=== PATIENT | male | born 1990 ===

== ENCOUNTER 2018-02-15 00:51 | Outpatient (CLI) | payer MEDICAID, SELFPAY ==
--- NOTE | 2018-02-15 07:30 | DI.RPTCT_ITS ---
SYMPTOM/DIAGNOSIS: HEMATURIA, PAIN RENAL COLIC CT: The study was carried out according to the usual protocol without contrast enhancement. A small portion of the lung bases is demonstrated and appears unremarkable. The mid and inferior portion of the liver and gallbladder and pancreas are intact. Small splenules are noted adjacent to the lower border of the spleen. No splenic abnormality is seen. There is a tiny calcification in the left kidney consistent with a non obstructing calculus. The right kidney is unremarkable. There is no evidence of right or left hydronephrosis or hydroureter or ureterolithiasis. Thickening of the bladder wall is likely secondary to non distension. There is no evidence of bowel obstruction. The appendix is normal. There is no evidence of free air or free fluid in the intraperitoneal space. The unopacified aorta is unremarkable. Note is made of an L 5-S 1 spondylosis without evidence of spondylolisthesis. SUMMARY: A single small nonobstructing left renal calculus is identified. The bladder is incompletely evaluated on the present examination due to non distension. Further assessment with cystoscopy is suggested if clinically warranted.
[2018-02-15 08:10] LABS: CREATININE 0.85 mg/dL (0.70-1.30)
[2018-02-15 08:40] LABS: Bilirubin Small (Negative); Blood Negative (Negative); Clarity Sl Cloudy; Glucose Negative (Negative); Ketones Trace mg/dL (Negative); Leukocyte Esterase Negative (Negative); Nitrite Negative (Negative); Specific Gravity >= 1.030 (1.005-1.025); Urobilinogen 0.2 EU/dL (Up TO 0.2); pH 5.5 (5-8)
[2018-02-15 08:51] LABS: Epithelial Cells Rare HPF (Negative); RBC 0-2 (0-2)
[2018-02-15 08:52] LABS: Bacteria Moderate HPF (Negative); C & S Indicated? Yes; Crystals Negative HPF (Negative); Mucus Heavy (Negative); Other Cells Rare Renal (Negative)
== END 2018-02-15 00:52 ==
PROVIDERS: PCP General Practice; Visit Provider General Practice
DX: R31.9 Hematuria, unspecified (principal); N20.0 Calculus of kidney; R10.32 Left lower quadrant pain
CPT/HCPCS: 36415; 74176; 81003; 81015; 82565; 87086

== ENCOUNTER 2018-07-30 01:29 | Outpatient (CLI) | payer MEDICAID, SELFPAY ==
--- NOTE | 2018-07-30 09:23 | DI.RAD_ITS ---
SYMPTOMS/DIAGNOSIS: CHRONIC BACK PAIN C-SPINE: The vertebral bodies and disc spaces are well maintained. The neural canal is widely patent. There is no evidence of bony foraminal compromise. The posterior elements and facet joints are normal. The odontoid is normal. The prevertebral soft tissues are unremarkable. Bilateral styloid processes. SUMMARY: Normal C-spine. If there is any further clinical question, then correlation with MRI could be considered.
--- NOTE | 2018-07-30 09:23 | DI.RAD_ITS ---
SYMPTOM/DIAGNOSIS: CHRONIC BACK AND NECK PAIN THORACIC SPINE: Frontal and lateral views. Comparison chest xray is 05/04/17. There is a right convex scoliosis of the thoracic spine. There is also exaggeration of the kyphosis. There is thoracic curvature of the thoracic spine seen centered around T 10-11. There are mild degenerative changes seen in the lower thoracic spine. No acute fractures or subluxations are seen. The paraspinal lines are intact. IMPRESSION: Mild degenerative changes in the thoracic spine. Right convex scoliosis and kyphosis seen in the thoracic spine. LUMBAR SPINE: AP, lateral and bilateral oblique views. Comparison CT scan is 02/15/18. There is a left convex scoliosis of the lower thoracic and lumbar spine. There is spondylolysis at L 5 but no significant spondylolisthesis. No acute fractures or subluxations are seen. The vertebral bodies and disc spaces are all well maintained. Small endplate osteophytes are seen at the T 12-L 1 level and the L 3-4 level. The bones are normally mineralized. IMPRESSION: Mild degenerative changes in the lumbar spine.
== END 2018-07-30 01:49 ==
PROVIDERS: PCP General Practice; Visit Provider General Practice
DX: M54.2 Cervicalgia (principal); M54.6 Pain in thoracic spine; M54.5 Low back pain; M47.815 Spondylosis without myelopathy or radiculopathy, thoracolumbar region; M41.35 Thoracogenic scoliosis, thoracolumbar region
CPT/HCPCS: 72050; 72072; 72110

== ENCOUNTER 2019-03-21 10:17 | Emergency (ER) | payer BC, SELFPAY ==
[2019-03-21 10:22] VITALS: BP 153/87; PULSE 80; RESP 18; TEMP 36.7; O2SAT 100
[2019-03-21 10:26] VITALS: RESP 18
--- NOTE | 2019-03-21 10:45 | DI.CT_ITS ---
EXAM: CT CHEST PE CTA CLINICAL HISTORY: Hemoptysis. TECHNIQUE: COMPARISON: RENAL COLIC WO CONTRAST from 02/15/2018 FINDINGS: CT angiography of the chest was performed bolus infusion of 100 cc of Omnipaque 350. The examination is not of ideal technical quality but no significant pulmonary embolus is identified. Thoracic aort a and major branches are unremarkable. No mediastinal or hilar adenopathy. Tracheobronchial tree ap pears intact. Lungs are clear. Images obtained through the upper abdomen show unremarkable appearan ce of visualized portions of liver and spleen IMPRESSION: No evidence of pulmonary embolic disease. No additional significant findings.
--- NOTE | 2019-03-21 10:46 | W.ED.GENAD ---
Discharge Plan Disposition Patient Disposition: HOME Condition: Improving Discharge Details Chief Complaint: GenMedical Clinical Impression: Cough with hemoptysis Primary Care Provider: Rosalino Sam ED Provider: Shilo Valenzuela Discharge Instructions Instructions: Hemoptysis (ED) Additional Instructions: Return if you have persistent coughing up of blood, develop with fever, shortness of breath, chest pain, or any other acute concerns. Your laboratories and CAT scan of the chest were unremarkable and reassuring today. Continue efforts to completely cease use of tobacco products. Follow-up with Dr. Sam for any ongoing concerns. Medical Decision Making 28-year-old male light smoker presents with 3 coughs this morning that were bloody tinged. States he had similar episode of hemoptysis that was larger one month ago. Denies any systemic signs or symptoms of infection. He is otherwise been well. He does not take anticoagulants. Is well-appearing with normal vital signs, although slightly hypertensive at 153/87. Differential diagnosis includes anemia, bronchitis, mass or PE. Patient had screening laboratories obtained referred for CT scan of the chest. Laboratories are unremarkable. CT is without abnormal findings. Patient remained stable and improved. Discussed with him complete cessation of tobacco products. He stable and improved, appropriate for discharge to home. HPI General Mode of arrival: ambulatory. Date/Time Provider Initiated Documentation: 03/21/19 10:34. Limitations to Documentation: no limitations. Information obtained by: patient. History of Present Illness 28 year old M presents to the emergency department with the chief complaint of Hemoptysis 1 month ago and recurrent today, described as mild, and is localized to the chest. Patient reports no radiation. Patient started experiencing this minute(s) and it has been now resolved. No relieving factors improve symptom(s), No exacerbating factors reported . Patient notes cough; denies fever/chills, shortness of breath and syncope. Patient did receive the following treatments prior to arrival, none General Stated Complaint: GenMedical JUAN: 3 Review of Systems Review of Systems Narrative: Smokes all though has minimized his use. No fever, chills, body ache, night sweats. Sick systems reviewed and otherwise negative [facility] Social History Smoking/Tobacco Use Status: Current every day Tobacco Type: cigarettes Alcohol Intake: former Substance use type: does not use Do you feel safe at home: Yes Do you feel safe in your relationship?: Yes Exam Narrative Exam Narrative: GEN: awake, alert, oriented 3. Pleasant, well groomed, interactive. HEAD: Normocephalic, atraumatic ENT: Mucous membranes moist, oropharynx unremarkable, External ear exam unremarkable EYES: PERRL, EOMI NECK: Full ROM, no BINTA, no menigismus CHEST/RESP: Nontender, clear to auscultation bilateral, no wheeze/rhonchi/rales CARDIOVASCULAR: RRR, no murmur, rub gerber. 2+ Rad pulse bilateral ABDOMEN: Soft, nontender, no mass. +Bowel sounds EXT: Full ROM, no edema, no rash Neuro: Grossly normal neurologic exam, conversant, interactive. Psych: Speech fluent, thoughts congruent, affect normal Course Vital Signs Vital signs: Vital Signs Temperature 36.7 C 03/21/19 10:22 Pulse 80 03/21/19 10:22 Respiratory Rate 18 03/21/19 10:22 Blood Pressure 153/87 H 03/21/19 10:22 Pulse Oximetry 100 03/21/19 10:22 Temperature 36.7 C 03/21/19 10:22 Temperature Source Temporal Artery Scan 03/21/19 10:22 Pulse 80 03/21/19 10:22 Respiratory Rate 18 03/21/19 10:26 Respiratory Effort Non-Labored 03/21/19 10:26 Respiratory Depth Normal 03/21/19 10:26 Respiratory Pattern Normal 03/21/19 10:26 Blood Pressure 153/87 H 03/21/19 10:22 Blood Pressure Position Supine 03/21/19 10:22 Pulse Oximetry 100 03/21/19 10:22 Oxygen Delivery Method Room Air 03/21/19 10:22 Oxygen Flow Rate 0 03/21/19 10:22 Pain Level 0 03/21/19 10:22
[2019-03-21] MEDS: Normal Saline Flush 10 ML SYR IVP (10:58)
[2019-03-21 10:59] LABS: Abs Immature Grans 0.02 k/cumm (0.0-0.09); Absolute Basophil Count 0.01 k/cumm (0.0-0.2); Basophils % 0.1; Eosinophils % 1.3; HCT 46.2 % (40.0-50.0); HGB 15.9 g/dL (13.5-17.5); Immature Grans % 0.3; Lymphocytes % 27.2; Mean Corp. HGB Concentration 34.4 g/dL (32.0-36.0); Mean Corpuscular Hemoglobin 29.2 pg (27.0-33.0); Mean Corpuscular Volume 84.9 fL (80-95); Mean Platelet Volume 10.6 fL (8.0-11.0); Monocytes % 9.1; Platelet Count 201 x1000/uL (130-400); RBC 5.44 m/cumm (4.50-6.00); RBC Distribution Width 12.6 % (11.8-14.1); White Blood Cell Count 7.73 k/cumm (4.4-10.8)
[2019-03-21 11:11] LABS: ALT 48 U/L (16-63); AST 24 U/L (15-37); Albumin 4.2 g/dL (3.4-5.0); Alkaline Phosphatase 98 U/L (46-116); Anion Gap 7.8 mmol/L (3-11); BUN 13 mg/dL (7-18); Bilirubin, Total 0.6 mg/dL (0.2-1.0); CO2 30.2 mmol/L (21.0-32.0); CREATININE 0.91 mg/dL (0.70-1.30); Chloride 102 mmol/L (98-107); Glucose 87 mg/dL (70-100); Potassium 4.2 mmol/L (3.5-5.1); Sodium 140 mmol/L (136-145); Total Protein 7.9 g/dL (6.4-8.2)
[2019-03-21] MEDS: Omnipaque 350 MG/ML 100 ML BTL IJ (12:02)
[2019-03-21 12:25] VITALS: PULSE 77; RESP 18; TEMP 36.8; O2SAT 98
== END 2019-03-21 12:26 | disposition home or self-care (01) ==
PROVIDERS: Emergency Provider Emergency Medicine; PCP General Practice
DX: R04.2 Hemoptysis (principal); F17.210 Nicotine dependence, cigarettes, uncomplicated
CPT/HCPCS: 36415; 71275; 80053; 96360; 96361; 99285; 85025; 99284; J3490

== ENCOUNTER 2019-09-06 10:15 | Outpatient (CLI) | payer BC, SELFPAY ==
--- NOTE | 2019-09-06 10:15 | DI.RAD_ITS ---
EXAM: XR CHEST 2V PA LATERAL CLINICAL HISTORY: Recurrent hemoptysis, R04.2 TECHNIQUE: COMPARISON: CHEST 2 VIEWS PA,LAT from 05/04/2017 XR thoracic spine complete from 07/30/2018 FINDINGS: There is a marked biconvex thoracolumbar scoliosis. Cardiac size is within normal limits. Lungs are clear. No pleural effusion or pneumothorax. Mediastinal contours grossly unremarkable. IMPRESSION: No evidence of acute process. No change from radiographs obtained in April 2017.
[2019-09-06 11:59] LABS: Abs Immature Grans 0.02 k/cumm (0.0-0.09); Absolute Basophil Count 0.02 k/cumm (0.0-0.2); Absolute Eosinophil Count 0.16 k/cumm (0.0-0.7); Absolute Lymphocyte Count 2.55 k/cumm (1.2-3.4); Absolute Monocyte Count 0.88 k/cumm (0.11-0.7); Absolute Neutrophil Count 4.41 k/cumm (1.2-6.7); Basophils % 0.2; HCT 46.4 % (40.0-50.0); HGB 15.9 g/dL (13.5-17.5); Immature Grans % 0.2 %; Lymphocytes % 31.7; Mean Corp. HGB Concentration 34.3 g/dL (32.0-36.0); Mean Corpuscular Hemoglobin 28.9 pg (27.0-33.0); Mean Corpuscular Volume 84.2 fL (80-95); Mean Platelet Volume 11.3 fL (8.0-11.0); Monocytes % 10.9; Platelet Count 218 x1000/uL (130-400); RBC 5.51 m/cumm (4.50-6.00); RBC Distribution Width 12.5 % (11.8-14.1); White Blood Cell Count 8.04 k/cumm (4.4-10.8)
== END 2019-09-06 10:35 ==
PROVIDERS: PCP Family Medicine; Visit Provider Family Medicine
DX: R04.2 Hemoptysis (principal)
CPT/HCPCS: 36415; 71046; 85025

== ENCOUNTER 2019-09-09 10:17 | Outpatient (CLI) | payer BC, SELFPAY ==
[2019-09-11 17:01] LABS: COVID-19 RT-PCR Result Undetected (Undetected)
== END 2019-09-09 10:37 ==
PROVIDERS: PCP Family Medicine; Visit Provider Family Medicine
DX: Z20.828 Contact with and (suspected) exposure to other viral communicable diseases (principal); R05 Cough; R06.02 Shortness of breath; R50.9 Fever, unspecified
CPT/HCPCS: 87449; U0003

== ENCOUNTER 2020-06-15 00:39 | Emergency (ER) | payer MEDICAID, SELFPAY ==
[2020-06-15] VITALS (12 sets, daily range): BP systolic 114–140; BP diastolic 72–78; PULSE 68–85; RESP 10–27; TEMP 36.4; O2SAT 95–100
--- NOTE | 2020-06-15 00:30 | RT.EKG_ITS ---
APPROVED REPORT Exam: Resting ECG Patient Location: E HR:86 bpm ECG Measurements Heart Rate 86 AXIS UT 142 P -19 QRSd 99 QRS 29 QT 346 T 8 QTc 414 Conclusion Sinus rhythm...normal P axis, V-rate 60- 99 Physician: Rate 86, intervals normal, no significant ST elevation or depression, inverted T wave is p resent in lead III, there is small Q-wave noted in lead III. No broad terminal S wave in lead I. No evidence of Brugada syndrome, delta wave, epsilon wave, or hocm. No STEMI
--- NOTE | 2020-06-15 00:45 | DI.RAD_ITS ---
EXAM: XR CHEST 2V PA LATERAL CLINICAL HISTORY: cogh, sob, chest tight. TECHNIQUE: 2D digital imaging was performed. COMPARISON: CR XR CHEST 2V PA LATERAL from 09/06/2019 FINDINGS: Heart size is normal. The mediastinum is not widened. Lungs are clear. No infiltrates nor pleural effusions. Chest leads in place. Thoracic scoliosis again noted. IMPRESSION: No acute pulmonary findings.No significant change compared to 09/06/2019. DATA REPOSITORY: RADIATION DOSE DELIVERED:
[2020-06-15] MEDS: Normal Saline 1,000 ML 1000 ML IV (00:55)
[2020-06-15 01:07] LABS: Abs Immature Grans 0.01 10^3/uL (0.0-0.06); Absolute Basophil Count 0.02 10^3/uL (0.0-0.2); Absolute Eosinophil Count 0.23 10^3/uL (0.0-0.7); Absolute Monocyte Count 0.72 10^3/uL (0.1-0.8); Absolute Neutrophil Count 4.52 10^3/uL (1.2-6.7); Basophils % 0.2; Eosinophils % 2.6; HCT 45.1 % (40.0-50.0); HGB 15.2 g/dL (13.5-17.5); Immature Grans % 0.1; Lymphocytes % 38.2; MCH 28.9 pg (27.0-33.0); MCHC 33.7 % (32.0-36.0); MCV 85.7 fL (80-95); MPV 11.3 fL (8.0-11.0); Monocytes % 8.1; Neutrophils % 50.8; Nucleated RBC 0 %; Platelet Count 199 10^3/uL (130-400); RBC 5.26 10^6/uL (4.36-5.78)
[2020-06-15 01:20] LABS: PTT Activated 25.9 sec (21.0-27.5); Prothrombin Time 9.9 sec (9.3-11.0)
[2020-06-15 01:31] LABS: ALT 47 U/L (16-63); AST 19 U/L (15-37); Albumin 3.9 g/dL (3.4-5.0); Alkaline Phosphatase 108 U/L (46-116); BUN 17 mg/dL (7-18); Bilirubin, Total 0.3 mg/dL (0.2-1.0); CREATININE 1.11 mg/dL (0.70-1.30); Calcium 8.3 mg/dL (8.5-10.1); Chloride 105 mmol/L (98-107); Glucose 132 mg/dL (74-106); Magnesium 1.9 mg/dL (1.8-2.4); NT-proBNP 10 pg/mL (<300); Potassium 3.5 mmol/L (3.5-5.1); Sodium 138 mmol/L (136-145); TSH (W/Ref FT4) 2.22 uIU/mL (0.36-3.74)
--- NOTE | 2020-06-15 01:32 | ED.GENADUL_ITS ---
Discharge Plan Disposition Patient Disposition: HOME Condition: Good Discharge Details Clinical Impression: Heart palpitations, Chest pain Primary Care Provider: Ryan Elliott ED Provider: Cristiano Arteaga Home Meds and New Rx's Prescriptions: No Action multivitamin Tablet 1 tab PO DAILY RF: 0 Discharge Instructions Instructions: Chest Pain (ED), Heart Palpitations (ED) Additional Instructions: At this time your work-up shows no signs of blood clots, heart attack, or other significant abnormality. However, your palpitations do need further evaluation. We have placed a referral for a Holter monitor. You will be contacted by respiratory therapist for scheduling placement of this device. Please follow-up closely with your primary care provider. I would recommend further discussion of the CPAP/BiPAP machine for your sleep apnea. If you notice any worsening of your symptoms, or any new symptoms such as vomiting, diarrhea, fever, chills, shortness of breath, chest pain, numbness, weakness, or fainting , please return immediately to the emergency department for reevaluation. Please follow up with your primary care provider as soon as possible for reassessment and reevaluation. As always, it was a pleasure participating in your medical care today. Referrals: Ryan Elliott DO [Primary Care Provider] - Medical Decision Making 30-year-old male with a past medical history of asthma, tobacco abuse, previous kidney stone, presents today for evaluation of palpitations. Patient states that he woke up in the middle of the night tightness in his chest radiating to his left arm. He did notice a small dry cough tonight. He had a heart rate monitor on him and noticed that his heart rate would oscillate between the high 90s to 130s. His symptoms persisted and he came to the ER for further assessment. He has noticed episodes like this occasionally recently, especially with his heart rate going up slightly more, however he has not ever had it last this long or with this associated pain. Does have a family history of cardiac disease however his parents when they are 50s and 60s when this occurred. Denies PE risk factors such as recent long car rides, immobilization, recent major surgery, prior history of DVT or PE, family history of PE or DVT, morbid obesity, exogenous estrogen, hemoptysis, history of cancer. He does admit to having his right posterior molar removed 1 week ago, but he has had no complications with this. No other complaints at this time. No history of IV or illicit drug use, no cocaine use, no alcohol use. Physical exam is unremarkable, patient does have a slightly enlarged neck girdle, may be suggestive of sleep apnea. His lungs are clear, vital signs are stable at this time. Pain is mild. Differential is broad but includes musculoskeletal pain, sleep apnea, or dysrhythmia. We will gently rehydrate, monitor closely, evaluate for cardiac etiology and reassess. I do feel the patient would benefit from an outpatient Holter monitor if his results are unremarkable in the end. 4:45 AM Serial troponins, serial EKGs, have returned normal, D-dimer negative, laboratory work-up otherwise unremarkable. Patient feeling well, pain resolved completely on its own within the first 30 minutes here in the emergency department. proBNP normal suggesting no signs of heart strain, thyroid function normal, urinalysis negative, UDS negative. Symptoms feel very likely related to palpitations potentially secondary to sleep apnea. Symptoms inconsistent with ACS. Will give order for outpatient Holter monitor. Recommend close follow-up with PCP for discussion about CPAP/BiPAP at home. Discussed red flags for which to return. Discussed case with his as well. I have extensively reviewed the treatment plan and discharge instructions with the patient and their family. I have addressed all patient concerns at this time. The patient and family was made aware of what symptoms to monitor for that would warrant a return to the emergency department. Discussed the plan with the patient and family, they demonstrate verbal understanding and agreement with our assessment and plan at this time. EKG 00: 46 Rate 86, intervals normal, no significant ST elevation or depression, inverted T wave is present in lead III, there is small Q-wave noted in lead III. No broad terminal S wave in lead I. No evidence of Brugada syndrome, delta wave, epsilon wave, or hocm. No STEMI FINDINGS: Lungs: Unremarkable. No consolidation. Pleural space: Unremarkable. No pleural effusion. No pneumothorax. Heart/Mediastinum: Unremarkable. No cardiomegaly. Bones/joints: Unremarkable. IMPRESSION: No acute findings. Thank you for allowing us to participate in the care of your patient. Dictated and Authenticated by: Andrew Flaherty MD 06/15/2020 1:36 AM Eastern Time ([place] & [place]) HPI General Date/Time Provider Initiated Documentation: 06/15/20 00:39 . HPI Narrative: 30-year-old male with a past medical history of asthma, tobacco abuse, previous kidney stone, presents today for evaluation of palpitations. Patient states that he woke up in the middle of the night tightness in his chest radiating to his left arm. He did notice a small dry cough tonight. He had a heart rate monitor on him and noticed that his heart rate would oscillate between the high 90s to 130s. His symptoms persisted and he came to the ER for further assessm ent. He has noticed episodes like this occasionally recently, especially with his heart rate going up slightly more, however he has not ever had it last this long or with this associated pain. Does have a family history of cardiac disease however his parents when they are 50s and 60s when this occurred. Denies PE risk factors such as recent long car rides, immobilization, recent major surgery, prior history of DVT or PE, family history of PE or DVT, morbid obesity, exogenous estrogen, hemoptysis, history of cancer. He does admit to having his right posterior molar removed 1 week ago, but he has had no complications with this. No other complaints at this time. No history of IV or illicit drug use, no cocaine use, no alcohol use. Related Data Home Medications Medication Instructions Recorded Confirmed multivitamin 1 tab PO DAILY 09/03/19 06/15/20 Allergies Allergy/AdvReac Type Severity Reaction Status Date / Time No Known Allergies Allergy Verified 06/15/20 00:51 General Stated Complaint: Chest Pain JUAN: 2 Review of Systems All systems reviewed & are unremarkable except as noted in HPI and below PFSH Medical History Alcohol abuse Asthma Chronic pain Kidney stone Schizoaffective disorder Scoliosis Spondylolisthesis Tobacco use disorder Surgical History History of arthroplasty of right knee History of total left hip arthroplasty Family History Maternal Grandmother Non-Hodgkins lymphoma Maternal Grandfather Non-Hodgkins lymphoma Social History Smoking/Tobacco Use Status: Current-Occasional Tobacco Type: cigarettes Tobacco: How many years used: 10 Smoking risk assessment performed?: Yes Alcohol Intake: former Drug use: Current Sobriety Substance use type: former substance user, marijuana and opiates Adopted: No Caregiver/Support person: No Foster care: No Household members: significant other and family Housing: house Do you need help understanding health information?: Never current occupation: Development, [employer] Sexually active: Yes Do you think of yourself as: straight/heterosexual Current gender identity: male Do you feel safe at home: Yes Do you feel safe in your relationship?: Yes Exam Narrative Exam Narrative: 1.Const: Well-nourished, Well-developed, appearing stated age 2.Eyes: PERRL, no conjunctival injection, and symmetrical lids. 3.ENT: Atraumatic external nose and ears. Moist MM. Neck: Symmetric, trachea midline, No thyromegaly. Large neck girdle 4.CVS: +S1/S2, No murmurs or gallops. Peripheral pulses 2+ and equal in all extremities. Brisk capillary refill in all extremities. 5.RESP: Unlabored respiratory effort. Clear to auscultation bilaterally. No wheezes rales or rhonchi 6.GI: Soft, Nontender/Nondistended, No hepatosplenomegaly. No guarding or rebound. 7.MSK: Normocephalic/Atraumatic, Extremities w/o deformity or ttp No cyanosis or clubbing, Normal movement of all extremities 8.Skin: Warm, Dry. No rashes or lesions. 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 Sensation grossly intact, no focal neurologic deficits. 10.Psych: (AAO) x3. Appropriate mood and affect Course Vital Signs Vital signs: Vital Signs Temperature 36.4 C L 06/15/20 00:46 Pulse 85 06/15/20 00:46 Respiratory Rate 20 06/15/20 00:46 Blood Pressure 140/77 06/15/20 00:46 Pulse Oximetry 100 06/15/20 00:46 Temperature 36.4 C L 06/15/20 00:46 Temperature Source Skin 06/15/20 00:46 Pulse 80 06/15/20 01:02 Pulse 80 06/15/20 01:02 Respiratory Rate 23 06/15/20 01:02 Respiratory Effort Non-Labored 06/15/20 00:55 Respiratory Depth Normal 06/15/20 00:55 Respiratory Pattern Normal 06/15/20 00:55 Blood Pressure 129/72 06/15/20 01:02 Blood Pressure Mean 83 06/15/20 01:02 Blood Pressure Position Supine 06/15/20 00:46 Pulse Oximetry 98 06/15/20 01:02 Oxygen Delivery Method Room Air 06/15/20 00:46 Oxygen Flow Rate 0 06/15/20 00:46 Pain Level 0 06/15/20 00:55 Lab/Test Results Lab/Test Results: Laboratory Tests Range/Units 06/15/20 06/15/20 00:55 00:55 WBC (4.4-10.8) 10^3/uL 8.90 RBC (4.36-5.78) 10^6/uL 5.26 Hgb (13.5-17.5) g/dL 15.2 Hct (40.0-50.0) % 45.1 MCV (80-95) fL 85.7 MCH (27.0-33.0) pg 28.9 MCHC (32.0-36.0) % 33.7 RDW (11.8-14.1) % 12.0 Plt Count (130-400) 10^3/uL 199 MPV (8.0-11.0) fL 11.3 H Immature Gran % 0.1 Neutrophils % 50.8 Lymphocytes % 38.2 Monocytes % 8.1 Eosinophils % 2.6 Basophils % 0.2 Nucleated RBC % % 0 Absolute Neutrophils (1.2-6.7) 10^3/uL 4.52 Absolute Lymphocytes (1.2-3.4) 10^3/uL 3.40 Absolute Monocytes (0.1-0.8) 10^3/uL 0.72 Absolute Eosinophils (0.0-0.7) 10^3/uL 0.23 Absolute Basophils (0.0-0.2) 10^3/uL 0.02 PT (9.3-11.0) sec 9.9 INR (0.9-1.1) 1.0 APTT (21.0-27.5) sec 25.9
--- NOTE | 2020-06-15 01:36 | DI.VRAD_ITS ---
PROCEDURE INFORMATION: Exam: XR Chest, 2 Views Exam date and time: 06/15/2020 12:52 AM Age: 30 years old Clinical indication: Cough and shortness of breath; Patient HX: Cogh, SOB, chest tight TECHNIQUE: Imaging protocol: XR of the chest Views: 2 views. COMPARISON: CR XR CHEST 2V PA LATERAL 09/06/2019 10:32 AM FINDINGS: Lungs: Unremarkable. No consolidation. Pleural space: Unremarkable. No pleural effusion. No pneumothorax. Heart/Mediastinum: Unremarkable. No cardiomegaly. Bones/joints: Unremarkable. IMPRESSION: No acute findings. Dictated and Authenticated by: Andrew Flaherty MD. Ordering:LEEANNE Quinonez MD
[2020-06-15 01:41] LABS: Troponin I < 0.05 ng/mL (<0.06)
[2020-06-15 01:51] LABS: D-Dimer 198 ng/mlFEU (<500)
[2020-06-15 02:28] LABS: *AMPHETAMINES SCREEN URINE Negative (Negative); *BARBITURATES SCREEN URINE Negative (Negative); *BENZODIAZEPINES SCREEN URINE Negative (Negative); Cannabinoids THC Negative (Negative); Cocaine Screen,Urine Negative (Negative); METHADONE URINE SCREEN Negative (Negative); OPIATES URINE SCREEN Negative (Negative)
[2020-06-15 02:33] LABS: Bilirubin Negative (Negative); Blood Negative (Negative); Clarity Clear (Clear); Glucose Negative (Negative); Ketones Negative (Negative); Leukocyte Esterase Negative (Negative); Nitrite Negative (Negative); Specific Gravity 1.025 (1.005-1.025); Urobilinogen 0.2 EU/dL (Up TO 0.2)
[2020-06-15 02:54] LABS: Tricyclic Antidepressants Negative (Negative)
--- NOTE | 2020-06-15 03:45 | RT.EKG_ITS ---
APPROVED REPORT Exam: Resting ECG Patient Location: E HR:66 bpm ECG Measurements Heart Rate 66 AXIS AR 168 P -16 QRSd 98 QRS 13 QT 370 T 4 QTc 387 Conclusion Sinus rhythm...normal P axis, V-rate 60- 99 I have reviewed and interpreted ECG and agree with software generated interpretation. Unchanged from prior EKG
[2020-06-15 04:39] LABS: Troponin I < 0.05 ng/mL (<0.06)
== END 2020-06-15 05:00 | disposition home or self-care (01) ==
LOC: ER 02:18
PROVIDERS: Emergency Provider Student in an Organized Health Care Education/Training Program; PCP Family Medicine
DX: R00.2 Palpitations (principal); R07.89 Other chest pain
CPT/HCPCS: 36415; 80053; 80307; 93005; 96360; 99285; 71046; 81003; 83735; 83880; 84443; 84484; 85025; 85379; 85610; 85730; 93010; 93225

== ENCOUNTER 2020-06-16 09:34 | Outpatient (RCR) | payer MEDICAID, SELFPAY ==
--- NOTE | 2020-06-16 10:45 | HOLTER_ITS ---
APPROVED REPORT Exam Type: HOLTER MONITOR APPLICATION Reason for Test: chest pain/palpitations Patient Location: O Conclusion This is a 48-hour monitor ordered for the indication of palpitations. ???The patient was in normal sinus rhythm for the majority of the recording with an average heart rat e of 81 bpm. ???There were rare PACs and rare PVCs. ???There was one episode coded as atrial fibrillation is instead more consistent with normal sinus rh ythm at a rate of 73 bpm with a singular PAC. ???There were 0 episodes of ventricular tachycardia. ???Multiple patient diary events were associated with normal sinus rhythm and occasional PVC.
== END 2020-06-18 23:59 | disposition home or self-care (01) ==
LOC: RT 09:34
PROVIDERS: PCP Family Medicine; Visit Provider Student in an Organized Health Care Education/Training Program
DX: R00.2 Palpitations (principal); I47.1 Supraventricular tachycardia
CPT/HCPCS: 93225; 93226

== ENCOUNTER 2020-08-12 11:07 | Outpatient (CLI) | payer MEDICAID, SELFPAY ==
--- NOTE | 2020-08-12 11:00 | RT.EKG_ITS ---
APPROVED REPORT Exam: Resting ECG Patient Location: O HR:87 bpm ECG Measurements Heart Rate 87 AXIS MD 168 P 19 QRSd 97 QRS 20 QT 352 T 3 QTc 423 Conclusion Sinus rhythm...normal P axis, V-rate 60- 99 Normal Electrocardiogram
== END 2020-08-12 11:08 | disposition home or self-care (01) ==
LOC: DI.KIM 11:08
PROVIDERS: PCP Family Medicine; Visit Provider Nurse Practitioner Adult Health
DX: R07.89 Other chest pain (principal); Z87.891 Personal history of nicotine dependence
CPT/HCPCS: 93010

== ENCOUNTER 2020-09-29 14:39 | Outpatient (CLI) | payer MEDICAID, SELFPAY ==
--- NOTE | 2020-09-29 13:57 | DI.RAD_ITS ---
EXAM: XR CHEST 2V PA LATERAL CLINICAL HISTORY: 30 yo male, hemoptysis and R sided chest pain, R07.89, R04.2 TECHNIQUE: 2D digital imaging was performed. COMPARISON: CR,XR XR CHEST 2V PA LATERAL from 06/15/2020 FINDINGS: MEDIASTINUM: Normal. HEART: Normal. PULMONARY VASCULATURE: Normal. LUNGS: Clear. PLEURAL SPACE: No pleural effusion or pneumothorax. BONE:Within normal limits for the patient's age. Right convex thoracic scoliosis. OTHER FINDINGS:Normal. IMPRESSION: No acute pulmonary findings. DATA REPOSITORY: RADIATION DOSE DELIVERED:
--- OUTSIDE RECORDS SUMMARY | 2020-09-29 14:43 | XMS_ITS ---
:1990 Author Care Team Providers Name Role Phone EDMUNDO LIVJULES ([facility] INTERNAL MEDICINE) Primary Care Provi shi [phone] [facility] MEDICAL RECORDS OTHER [phone] Allergies Code Code System Name Reaction Severity Status Onset NKDA ? Medications Name Status Start Date Stop Date ? ? amoxicillin 500 mg capsule Completed ? 08/10 TK 1 C PO TID FOR 7 DAYS chlorhexidine gluconate 0.12 % mouthwash Completed ? 08/10/2020 RINSE WITH ONE TABLESPOONFUL 15ML TWO TIMES A DAY F OR 30 SECONDS FOR 10 DAYS covid vtdoh testing admin fee Completed ? SAMPLE COLLECTION DATE 04/08/2020 TIME 10 45AM PATIENT diclofenac sodium 75 mg tablet,delayed release Completed ? 08/10/2020 TK 1 T PO BID ibuprofen 800 mg tablet Completed ? 08/10/19 TAKE ONE TABLET BY MOUTH THREE TIMES A DAY NEEDED FOR PAIN meloxicam 15 mg tablet Completed ? TK 1 T PO D multivitamin Active ? Not available 1 tab a day PO Nicoderm CQ 7 mg/24 hr daily transdermal patch Completed ? 08/10/2020 Apply 1 patch every day by transdermal route. Vitamin D3 50 mcg (2,000 unit) capsule Active ? Not available Take 1 capsule every day by oral route for 90 days. Problems Name Status Onset Date Source ? Schizoaffective Disorder Active 07/07/2020 ? Alcoholism Active 07/07/2020 ? Tobacco User Unknown 07/07/2020 ? Obstructive Sleep Apnea Syndrome Active 07/07/2020 ? Chronic Pain Active 07/07/2020 ? Asthma Active 07/07/2020 ? Kidney Stone Active 07/07/2020 ? Scoliosis Deformity of Spine Active 07/07/2020 ? Spondylolisthesis Active 07/07/2020 ? Procedures None recorded. Results Lab Results None recorded. Past Encounters 08/10/2020 Obstructive Sleep Apnea Syndrome; Decrea sed Vitamin D Ismael Baker MD, Board Certified Sleep Ph ysician: [address] [place] [address] [address], [place] [address], Ph. Social History Tobacco Smoking Status Never Smoker Notes: quit 2019 Vaccine List None recorded. Plan of Care Patient Instructions Your sleep study shows Obstructive Sleep Apnea and we discussed your treatment options. You expressed good understanding and agreed to proceed with CPAP/BIPAP therapy. We discussed process of initiating thera py, commonly encountered problems and ways to get help and troubleshoot them. I have sent a script for new machine to the following Durable Medical Equipment Provider. Please contact them in 2 week if you do not hear from them by then. [x ] [facility] [place]: [address], [place], [place]; They will make an appointment for you to fern picker the machine and show you how to put on the mask and operate the machine. Making the effort to use your machine ev maritza time you sleep is very important, especially as you get used to therapy. Please call them if you have any questions on how to use machine or use your mask. Ca ll them if your mask is not fitting righ t and need to be fitted with a new one. This is important to do as early as possible. Please call Sleep Clinic if you have any other concerns or problems before your next appointment. Remember to bring your entire PAP occupational therapy asst including mask, hose, and plug to your future appointme nts. This allows me to provide you with the best patient care and address any of your questions/concerns on therapy. Start vit D3 2000 iu daily, ok to take w ith your multivitamin Keep up good work on healthy diet Reminders Provider Appointments None recorded. ? ? Lab None recorded. ? ? Referral None recorded. ? ? Procedures None recorded. ? ? Surgeries None recorded. ? ? Imaging None recorded. ? ? Vitals Height Weight BMI Blood Pressure 190.5 cm 149.96 kg 41.3 kg/m2 156/85 mm[Hg]
--- OUTSIDE RECORDS SUMMARY | 2020-09-29 14:43 | XMS_ITS | Encounter Summary ---
:1990 Author Care Team Providers Name Role Phone Ryan Elliott ([facility] Internal Medicine) Primary Care Provi shi [phone] [facility] Medical Records OTHER [phone] Reason for Visit SLEEP CLINIC New Adult Patient Assessment and Plan Assessment Note I provided greater than 60 minutes in t he care of this patient, more than half the time was spent in [id number] counseling. 1. Obstructive sleep apnea syndr ome 08/10/20: mild to moderate HALEY AHI 5.2/hr RDI 17/hr that was very severe in supine REM sleep diagnosed in CT in 2015, pt recalls weighing around 380 lbs then, his wt went as low as 270s when he noted improvement in snoring and sleep quality, now at 330 lbs, he has loud snoring and feeling tired again. He had very good experience at titration, felt well rested after 1 night on cpap. want to proceed w/ cpap now. Treatment options discussed. Connor bradley reviewed process of starting treatment and commonly encountered problems and ways to find support and troubleshooting problems. Weight loss encouraged. Continuing t o work on this. 08/10/20: start apap 6 to 14cm (optim al pressure on titration 2015 at cpap 12cm which included supine REM sleep). he prefers shoaib view at titration, so can start w/ this one and switch as needed. ? auto-Pap equipment ? sleep apnea: care instruct ions 2. Decreased vitamin D 08/10/20: do not see vit D paco cullen checked recently but will start empiric 2000 iu daily tx, he also takes mvi w/ 6 00 iu which is fine to take together. if he has fatigue that persist after cpap, wou ld check levels via blodwork. ? Vitamin D3 50 mcg (2,000 u nit) capsule Discussion Note Remember to always take precautio ns on drowsy driving. If you experience sleepiness while driving, find a safe area to head well puller and take a break. Research suggests taking a power nap (15 to 20 roland jerel) and/or coffee (or caffeine containi ng food such as dark chocolate) may be effective aides. As always, you should use your judgement on whether to drive at all, if you are sleep deprived or feeling sleepy. Thank you for the kind opportunity to p articipate in your medical care. You expressed good understanding of your diagnosis and treatment, and agreed to proceed with the plan we discussed together. If y ou have any questions or concerns prior to your next appointment, please call Sleep Clinic. Plan of Care Patient Instructions Your sleep [...] hear from them by then. [x ] [facility] - [place]: [address], [place], [place]; They will make an appointment for you to product picker the machine and show you how [...] appointment. Remember to bring your entire PAP supervisor scrap preparation including mask, hose, and plug to your future appointme nts. This allows me to provide you with the best patient care and address any of your questions/concerns on therapy. Start vit D3 2000 iu daily, ok to take w ith your multivitamin Keep up good work on healthy diet Reminders Provider Appointments Office 10/12/2020 Ismael Baker MD, 9:00AM Board Certified Sleep Physician Lab None ? ? recorded. Referral None ? ? recorded. Procedures None ? ? recorded. Surgeries None ? ? recorded. Imaging None ? ? recorded. Medications Name Start Date ? ? multivitamin ? 1 tab a day PO Vitamin D3 50 mcg (2,000 unit) capsule ? Take 1 capsule every day by oral route for 90 days. Medications Administered None recorded. Vitals Height Weight BMI Blood Pressure 6 ft 3 in 330.6 lbs 41.3 kg/m2 156/85 mm[Hg] Results Lab Results None recorded. Allergies Code Code System Name Reaction Severity Onset NKDA ? ? ? Problems Name Status Onset Date Source ? Schizoaffective Disorder Active 07/07/2020 ? Alcoholism Active 07/07/2020 ? Obstructive Sleep Apnea Syndrome Active 07/07/2020 ? Chronic Pain Active 07/07/2020 ? Asthma Active 07/07/2020 ? Kidney Stone Active 07/07/2020 ? Scoliosis Deformity of Spine Active 07/07/2020 ? Spondylolisthesis Active 07/07/2020 ? Procedures None recorded. Vaccine List None recorded. Social History Tobacco Smoking Status Never Smoker Notes: quit 2019 Alcohol intake None Notes: sober 3yea rs Live alone or with others? with others Are you currently employed? Y Blind or serious difficulty seeing Y Not es: wears glasses Hard of hearing or deaf in one or N both ears? Caffeine intake Occasional Notes: 2 cups of coffee a day Drug Use N Functional Status Blind or serious Yes difficulty seeing? Past Encounters 08/10/2020 Obstructive Sleep Apnea Syndrome; Decrea sed Vitamin D Ismael Baker MD, Board Certified Sleep Ph ysician: [address] [place] [address] [address], [place] [address], Ph. History of Present Illness Note: <p><strong>Sleep Medicine New Patient Consult</strong>

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

Past medical history includes haley, scoliosis, tobacco dependence in early remission (May 2020), asthma, history of polysubstance abuse in remission (etoh, opiates, cocaine, mj), schizoaffective disorder (when on substance abuse)

<strong>PREVIOUS S LEEP EVALUATION: </strong>{{Reviewed in detail and summarized as follows:* Records not available, requested. Records not available. None. }}
</p><p>Presented with excessivedaytime sleepiness, morning cephalgia, non restorative sleep, snoring, waking up gasping. ESS 16.</p><p>
</p><p>Diagnostic PSG on 08/13/2015 showed AHI 5.2/hr, RDI 17/hr, omar O2 83%. severe snoring. REM AHI 11/hr. supine REM AHI 40/hr.</p><p>
</p><p>Titration PSG on 09/14/2015 showed: at cpap 12cm, he had AHI 2.2/hr, omar O2 91%, maint ained for 107 minutes with 23 minutes of supine REM. PLMi 8.5/hr. PLMai 1.5/hr.</p><p>
<strong>CHIEF COMPLAINT/HISTORY OF PRESENT ILLNESS: </strong>
Patients reports biggest problem with sleep is snoring and waking up gasping, and tired during day.
&lt ;/p><p>
</p><p>felt tired, wake up gasping, was worst 380s in 2016
</p><p>2017, went as low as 270s, felt better rested via keto diet and water fasting
</p><p>btw then and now 2020, 330 lbs
</p><p>
&lt ;/p><p>eating healthy now but issue is portion size
</p><p>
</p><p>stopped smoking in may 2020
</p><p>using nicotine patch&lt ;/p><p>stopped 06/14, thought he was having heart attack</p><p>trying to avoid s nacking
</p><p>
</p><p>if snacking, carrots, brocoli, cauli campos
</p><p>
</p><p>he doesnt like sugar, sodas/cakes ,puts him to sleep
</p><p>
</p><p>
</p& gt;<p> to sarah</p><p>kid - turning age 6</p><p>also a 6 month old baby&l t;/p><p>
</p><p>work at [employer]</p><p>enrolled at [employer] </p><p>
</p><p>some nights are only getting 5 to 6hours of sleep
</p><p>
</p><p>
<str abbi>SLEEP SCHEDULE:</strong> Bedtime {{8# }} {{pm# am}}, Sleep onset latency {{30# less than 30 30to 60 greater than 60 variable}} minutes, Awakenings {{2 to 3# 0-2 variable}} times per night, Able to fall back asleep within {{5 to 10 min# up to 30 minutes up to few hours variable}}, Wake time {{5:30 to 6# }} {{am# pm}}. Naps {{None regularly # Rare Occasionally Nearly Everyday Everyday}} .

<strong>SLEEP ENVIRONMENT:</strong> {{Pets wake patient up. Children wake patient up. Noise from outside room wake patient up. Light wakes patient up. No environmental disruptions identified. *}}

<strong>SLEEP QUALITY:</strong> {{Poor# Fair Very good Adequate Very poor}}

<strong>DAYTIME/NEUROCOGNITIVE FUNCTION: </strong> {{Low energy# Sleepy Alert}}to sleepy{{Problems with concentration and irritable mood# Problems with memory Problems with memory, concentration and mood No problems with memory, concentration, mood}}.

<strong>SLEEP RELATED THOUGHTS/BEHAVIORS:</strong> {{Deny insomnia related thought patterns or behaviors, except [place] active mind. Stressful thoughts interfering with sleep. Tendency to clock watch. Worry about getting good night sleep. *}}. {{.# [place] active mind. Stressful thoughts interfering with sleep. Tendency to clock watch. Worry about getting good night sleep.}} {{.# Stressful thoughts interfering with sleep. Tendency to clock watch. Worry about getting good night sleep. }} {{.# Tendency to clock watch. Worry about getting good night sleep. }} {{.# Worry about getting good night sleep. }}

<strong>SLEEP BREATHING:</strong> {{Snoring.* Witnessed apneas.}} {{Witnessed apneas.* Waking up gasping for air. }} {{.# Witnessed apneas. Waking up gasping for air.}} {{Mouth breathing.* Chronic nasal congestion.}} {{Chronic nasal congestion.*}}

<strong>LEG SYMPTOMS:</strong> {{Deny RLS related symptoms. # Legs move before sleep and/or during sleep.}} {{.# Leg movements are worsein evenings.}} {{.# Relieved by movement.}} {{.# Relieved by counterpressure.}} {{.# Leg cramps especially in evening.}} {{Toss and turn at night.* Sheets are messy after sleep.}} {{.# Sheets are messy after sleep.}}

<strong>MOVEMENT SYMPTOMS</strong>{{No sleepwalking # Sleeptalk. Sleepwalk: }}.

<strong>DREAM SYMPTOMS:</strong> {{Deny dream enacting behavior # Dream enactment behavior: }}. {{Deny hypnogogic or hypnopompic hallucinations # See dreams in room when waking up or falling asleep: }}. {{No disturbing dreams # Disturbing nightmares Recurring nightmares}}.

<strong>WEAKNESS SYMPTOMS:</strong> {{Deny cataplexy related symptoms # Muscles suddenly become weak triggered by emotion Muscles may feel weak but no emotional triggers known}} {{Deny sleep paralysis # Experienced inability to move upon waking up in remote past Experiences inability to move upon waking up on regular basis} }.

<strong>DRIVING:</strong> {{Deny drowsy driving # Experienced drowsy driving in past related to sleep deprivation Intermittent drowsy driving episodes Regular drowsy driving episodes}}. {{.# Follows drowsy driving precautions. Aware of drowsy driving precautions andplans to follow them.}}

<strong>OTHER PERTINENT SYMPTOMS: </strong>&lt ;br>
<strong>PRODUCT/SUBSTANCE USE:</strong>{{No smoking* No smoking, quit in remote past No smoking quit recently Current Smoker}}. {{No drugs, clean.# Contemplating quitting Ready to quit Not interested in quitting}}. {{No alcohol use* 1-2 alcohol drinks daily 3+ alcohol drinks daily Variable alcohol use}}. {{No regular illicit drug use# Recreational MJ use Medical MJ use Rare MJ use Cocaine Heroin/Non-prescribed Opiate}}. 2 cups coffee/day. No soda.

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 going to college online [employer]

</p> Review of Systems ? Notes: <p>A 14-point <strong>REVIEW OF SYSTEM</strong> was obtained and reviewed, includes CONSTITUTIONAL, EYE S, ALLERGY, NEUROLOGIC, ENDOCRINE, GI, CARDIOVASCULAR, SKIN, MSK, E NT, , RESPIRATORY, HEMATOLOGIC, PSYCH systems. Pertinent symptoms are discu ssed in history, otherwise negative.</p><p>working t o lose wt</p><p>teeth gridning, wake up w/ jaw discomfort</p><p>wake up w/ sore throat</p><p>heartburn</p><p >palpitations</p><p>headaches, related to light stimulation, not waking up w / them</p><p>joint pain in back</p><p>nocturia</p> Physical Exam ? Notes: <p>GENERAL: {{well appearing # chronically ill appearing}}, appearing {{stated# older than younger than}} age, no acute distress, {{obese# normal tall lean}} build

PSYCHIATRIC: well groomed, fluent speech, good insight, linear thought process, good eye contact, {{balanced# flat}} affect
NEUROLOGIC: alert, oriented, symmetric facial expression

<stron g>Clinical Data Reviewed:</strong>

1. {{Modified Pediatric [place] Sleepiness Scale [place] Sleepiness Scale*}}: 8 out of {{24# 21 due to not d riving}}.

2. [place] Questionnaire positive for {{3# 0 1 2}} ou t of 3 Categories.

3. {{Sleep study results as above.* Sleep study resul ts not available, requested Unable to obtain sleep study reports}}

4. {{ Lab results as outlined. * Labs pending.}}
TSH normal.
</p><p>did not se e vit D, B12 results.
</p><p>
5. {{Sleep log not filled. # Sleep log reviewed, consistent with history. Sleep log reviewed. }}</p>
== END 2020-09-29 14:59 ==
PROVIDERS: PCP Family Medicine; Visit Provider Family Medicine
DX: R07.89 Other chest pain (principal); R04.2 Hemoptysis
CPT/HCPCS: 71046

== ENCOUNTER 2020-09-30 03:29 | Outpatient (CLI) | payer MEDICAID, SELFPAY ==
[2020-09-30 11:12] LABS: Abs Immature Grans 0.01 10^3/uL (0.0-0.06); Absolute Basophil Count 0.05 10^3/uL (0.0-0.2); Absolute Eosinophil Count 0.07 10^3/uL (0.0-0.7); Absolute Lymphocyte Count 2.16 10^3/uL (1.2-3.4); Absolute Monocyte Count 0.57 10^3/uL (0.1-0.8); Absolute Neutrophil Count 4.76 10^3/uL (1.2-6.7); Basophils % 0.7; Eosinophils % 0.9; HCT 47.4 % (40.0-50.0); HGB 15.8 g/dL (13.5-17.5); Immature Grans % 0.1; Lymphocytes % 28.3; MCH 28.4 pg (27.0-33.0); MCHC 33.3 % (32.0-36.0); MCV 85.1 fL (80-95); MPV 10.9 fL (8.0-11.0); Monocytes % 7.5; Neutrophils % 62.5; Nucleated RBC 0 %; Platelet Count 201 10^3/uL (130-400); RBC 5.57 10^6/uL (4.36-5.78); RDW-SD 37.2 fL; WBC 7.62 10^3/uL (4.4-10.8)
== END 2020-09-30 03:30 | disposition home or self-care (01) ==
LOC: LBO 03:29
PROVIDERS: PCP Family Medicine; Visit Provider Family Medicine
DX: R04.2 Hemoptysis (principal)
CPT/HCPCS: 36415; 85025

== ENCOUNTER 2020-10-09 03:41 | Outpatient (CLI) | payer MEDICAID, SELFPAY ==
--- NOTE | 2020-10-09 08:00 | DI.CT_ITS ---
EXAM: CT NECK W CLINICAL HISTORY: Right neck very enlarged node,LYMPHADENOPATHY,R59.1. TECHNIQUE: Imaging Protocol: Axial computed tomography images with coronal and sagittal reformatted images were created and reviewed CONTRAST MATERIAL: Intravenous: Visipaque 320 contrast volume:100 ml Contrast route:IV - COMPARISON: CT CT CHEST PE CTA from 03/21/2019 CR XR CHEST 2V PA LATERAL from 09/29/2020 FINDINGS: Parotids/submandibular/thyroid gland: Normal. Lymphadenopathy: There is a smoothly marginated nodule involving or directly adjacent to the inferior aspect of the right parotid gland. This could represent an enlarged lymph node versus parotid mass. It measures 4.6 cm cephalo caudad by 2.3 cm in diameter. There is heterogeneous enhancement. Ther e are no calcifications. There are scattered lymph nodes seen along the level one to level three all measuring less than 8 mm in short axis diameter which are physiologic in nature. Carotids/Jugular: Within normal limits. Soft tissues: The floor the mouth is unremarkable. The epiglottis and vocal cords are within normal limits. Images through both lung apices are unremarkable. The visualized portions of the brain are unremarkable. The orbits, sinuses and mastoid air cells are unremarkable. Lungs: 14 millimeter smoothly marginated low-density nodule in the right upper lobe. This is not see n on previous PE CT from 2019. IMPRESSION: 4.6 centimeter right-sided neck mass the represent an abnormally enlarged lymph node versus mass in t he inferior right parotid gland. Biopsy is recommended for further evaluation. No additional adenop athy is seen. A 14 millimeter nodule is noted in the right upper lobe.. A PET CT could be considered for further ev aluation. RADIATION DOSE DELIVERED: 668.88mGy.cm Total DLP DATA REPOSITORY: All CT scans at this facility are submitted to the National Radiology Data Registry (NRDR) Dose Index Registry (DIR) with the [employer] (ACR). RADIATION OPTIMIZATION: All CT scans at this facility use at least one of these dose optimization te chniques: automated exposure control; mA and/or kV adjustment per patient size (includes targeted exa ms where dose is matched to clinical indication); or iterative reconstruction.
[2020-10-09] MEDS: Normal Saline - Diluent 50 ML VIAL IV (16:03)
== END 2020-10-09 04:01 ==
PROVIDERS: PCP Family Medicine; Visit Provider Nurse Practitioner
DX: R59.1 Generalized enlarged lymph nodes (principal); R22.1 Localized swelling, mass and lump, neck; R91.1 Solitary pulmonary nodule
CPT/HCPCS: 70491